=== PATIENT | female | born 1985 | race Caucasian/White ===

== ENCOUNTER 2024-08-26 04:43 | Day surgery (SDC) | payer OTHER ==
[2024-08-22 10:57] VITALS: BMI 36.2
[2024-08-26 06:52] VITALS: RESP 20
[2024-08-26] MEDS ORDERED: ceFAZolin SODIUM 1 GM VIAL ONE (09:29)
[2024-08-26] MEDS: ceFAZolin SODIUM 1 GM VIAL IVPB ONE (09:33)
[2024-08-26] MEDS ORDERED: ONDANSETRON 4 MG/2 ML VIAL ONE (10:03)
[2024-08-26] MEDS: ONDANSETRON 4 MG/2 ML VIAL IVPUSH PRN (10:05)
[2024-08-26] MEDS: LACTATED RINGERS SOLUTION 1,000 ML IV STA (10:15)
[2024-08-26] MEDS: LACTATED RINGERS SOLUTION 1,000 ML IV SCH (11:12)
[2024-08-26] MEDS ORDERED: ACETAMINOPHEN 325 MG TABLET (FP) PO PRN (11:41)
[2024-08-26 15:09] VITALS: TEMP 97.5
[2024-08-26 15:11] VITALS: BP 122/64; PULSE 72
== END 2024-08-26 14:40 | disposition home or self-care (01) ==
LOC: JASU-SURG 04:43
PROVIDERS: ATTEND Specialist
PROC: 0UVC7ZZ Restriction of Cervix, Via Natural or Artificial Opening (ICD-10-PCS; principal; 2024-08-26 08:30)
DX: O26.872 Cervical shortening, second trimester (principal); O34.32 Maternal care for cervical incompetence, second trimester; Z3A.15 15 weeks gestation of pregnancy
CPT/HCPCS: 76815-TC; 82962; 94760